=== PATIENT | female | born 1995 | race Hispanic/Latino ===

== ENCOUNTER 2019-01-14 17:31 | Emergency (ER) | payer BC, MEDICAID, OTHER | END 2019-01-14 18:15 | disposition home or self-care (01) | LOC: EDH 17:31 | DX: R07.89 Other chest pain (principal); M54.2 Cervicalgia; R25.3 Fasciculation; Z90.49 Acquired absence of other specified parts of digestive tract; Z91.013 Allergy to seafood | CPT/HCPCS: 93005 ==